=== PATIENT | female | born 1955 | race Caucasian/White ===

== ENCOUNTER 2017-04-12 20:53 | Emergency (ER) | payer OTHER ==
[~2017-04-12] VITALS: Ht 160 cm; Wt 58.0 kg
[2017-04-12 21:05] VITALS: Ht 160 cm; Wt 58.0 kg
--- NOTE | 2017-04-12 21:58 | ERD ---
ER Documentation Chief Complaint Date/Time DATE: 04/12/17 TIME: 21:56 Chief Complaint c/o right 4th digit laceration s/p cut by knife HPI 62-year-old female presenting to the emergency department with a superficial flap laceration from cutting a knife on her right fourth digit above the DIP region a couple hours prior to being seen. Patient states that she has full range of motion of her finger. Patient does not remember her last tetanus. She states pain is minimal ROS All systems reviewed and are negative except as per history of present illness. PMhx/Soc Medical and Surgical Hx: pt denies Medical Hx, pt denies Surgical Hx Hx Alcohol Use: Yes (SOCIALLY) Hx Substance Use: No Hx Tobacco Use: No Smoking Status: Never smoker Physical Exam Vitals Vital Signs Date Time Temp Pulse Resp B/P Pulse Ox O2 Delivery O2 Flow Rate FiO2 04/12/17 21:05 98.1 55 18 117/59 98 Physical Exam General: WD/WN, in no apparent distress, non-toxic appearing HENT: NC/AT Eyes: Conjunctiva normal Neck: Supple Pulm: Normal labored breathing CV: Good capillary refill GI: Non-distended, no guarding Back: No masses Ext: No clubbing, cyanosis, or edema Neuro: Moves on all fours, no neuro deficits, sensation intact Skin: 1 cm c superficial laceration to the dorsal aspect of the right fourth digit above the DIP n Psych: Normal mood Results 24 hrs Current Medications Medications (Trade) Dose Ordered Sig/Luis Antonio Route PRN Reason Start Time Stop Time Status Last Admin Dose Admin Diphtheria/ Tetanus/Acell Pertussis (Adacel) 0.5 ml ONCE ONCE IM* 04/12/17 22:00 04/12/17 22:01 Procedures/MDM This is a 62-year-old female presenting to the emergency department with a laceration to the right fourth digit, laceration is very superficial and does not require any suturing. In the ED patient was given tetanus shot. The wound was cleansed with normal saline and Steri-Strip was applied with pressure bandages. Low suspicion for arterial, tendon or fracture. She appears well and she has been instructed discharged home with precautions to return to emergency department for any worsening symptoms. She understands and agrees with this plan Departure Diagnosis: Primary Impression: Laceration Condition: Stable Patient Instructions: Laceration, Hand Referrals: DOCTOR,NOT ON STAFF (PCP) Additional Instructions: Follow up in 2 days in your clinic for wound check. Return to this facility if you are not improving as expected. MAHENDRA OTT PA-C Apr 12, 2017 21:58
[2017-04-12] MEDS ORDERED: DIPHTH/TET/ACEL PERTUSS (ADULT) 0.5 ML VIAL IM* ONE (22:00)
== END 2017-04-12 22:52 | disposition home or self-care (01) ==
LOC: FTE 20:53
DX: S61.214A Laceration without foreign body of right ring finger without damage to nail, initial encounter (principal); W26.0XXA Contact with knife, initial encounter; Y92.9 Unspecified place or not applicable
CPT/HCPCS: 90715; 99282

== ENCOUNTER → 2018-12-31 | Outpatient (CLI) | payer OTHER ==
--- NOTE | 2018-12-31 12:01 | CONS ---
Assessment/Plan Assessment/Plan Hospital Course (Demo Recall) This is a 63-year-old female who presents to clinic 1 week after acute right knee and lower leg pain. It has mostly resolved with only rest over the last couple days. Radiographs show no hip or knee pathology. However she does have significant degenerative disc disease of lumbar spine. This may have contributed to her acute pain which also radiated to the thigh and calf. At this time we will proceed with conservative management of her lumbar spine degenerative disc disease as well as her right lower leg deconditioning. Of note she does have a leg length discrepancy secondary to a trauma in her left leg as a child. This discrepancy may have led to or been part of the cause of her lumbar spine degeneration. If a shoe lift provides relief she should continue with a shoe lift however if it does not she does not need to wear it. Plan: Physical therapy for degenerative disc disease, hip strengthening, knee strengthening. Meloxicam Shoe lift Follow-up PRN Consultation Date/Type/Reason Admit Date/Time Date of Consultation: Dec 31, 2018 Reason for Consultation Right knee and leg pain Date/Time of Note DATE: 12/31/18 TIME: 11:49 Hx of Present Illness This is a 63-year-old female presents to clinic for evaluation and treatment of right knee and leg/hip pain. This all started 1 week ago when she stepped over a curb incorrectly. At that time she had 10 out of 10 sharp pain over the medial and posterior aspect of the knee. She states it radiated up her anterior thigh and down her calf. She denied any numbness or tingling or weakness. She does have history of lower back pain and stiffness which she does stretching exercises for and sees a chiropractor for. Her pain is much improved and it is now a 2/10. She did not have any swelling or feel a pop at that time. She does have a history of a meniscus tear in the right knee and had arthroscopic knee surgery in 1992. She is only been treating her pain with rest. She does not have any limitation to walking. States she is not sure what makes it worse as it is improving but yesterday she bumped her leg and she had an increased amount of pain for very limited amount of time. She does admit to an occasional limp. She does not use a gait aid. She uses a banister to climb stairs. Patient denies fever, chills, shortness of breath, chest pain, nausea/vomiting, constipation, diarrhea, numbness, and tingling. Past Medical History Left femur fracture at age 1209/19/1960 Depression Ectopic Past Surgical History Right knee arthroscopic surgery 1993 2 C-sections Family History Significant Family History: no pertinent family hx Social History Alcohol Use: heavy (7 drinks a week) Smoking Status: Former smoker Drug Use: none Exam/Review of Systems Exam Vitals Weight: 130 pounds Height: 5 feet 3 inches Temperature: 90.4 Heart Rate: 88 Blood Pressure: 173/77 Respiratory Rate: 14 Exam General: Alert, oriented x3. No Acute Distress. Heart: Regular rate and rhythm. Lungs: No respiratory distress. No accessory muscle use. Musculoskeletal: Right Knee This is a well developed female who is alert, oriented times three and in no apparent distress. Skin is intact over the right knee as well as the lower extremity with no abrasions, lacerations, or ulcerations. Observation of the patient's gait reveals a non- antalgic gait with no thrust. There is a short leg component. Frontal plane alignment is neutral. There is mild pain on palpation of medial joint line. There is no effusion. The patient demonstrates grinding anteriorly with ROM. Range of motion: 0 extension to approximately 130 degrees of flexion. Collateral ligament testing reveals no instability with varus or valgus stress at 0 and 30 degrees of flexion. Negative Javed's and neck posterior drawer. Standing, the pelvis is slightly oblique and supine there is mild true leg length discrepancy, with the right leg is quarter to half centimeter short. No tenderness over trochanteric bursa or IT band. ----- Range of motion: Flexion: 130 Extension: 0 Internal rotation: 30 External rotation: 60 Abduction: 60 Adduction: 20 ----- Sitting there is mild pelvic obliquity. No pain at the extremes of motion of the affected hip. Skin was intact throughout both lower extremities. Sensation intact to light touch in a sural, saphenous, deep peroneal, superficial peroneal, medial and lateral plantar nerve distribution. Neurovascular exam showed 5/5 strength in the abductors, quads, EHL/tibialis anterior/gastroc. Normal and symmetrical pulses were palpated in both the dorsalis pedis and posterior tibial arteries. There is no sign of venous stasis. Imaging Imaging The patient received a full set of films and personally reviewed by myself today in clinic including an AP pelvis and an AP and lateral of the affected hip. The hip is reduced. There is no loss of joint space. There is no degenerative changes in the right hip. Limited view of the lumbar spine shows significant degenerative disc disease with mild pelvic obliquity. There is no significant deformity of the the proximal femur, femoral neck, or acetabulum. The pelvis is in continuity. Bone quality radiographically: Good The patient received a standard set of films today that were personally reviewed. Imaging included a standing bilateral knee AP, PA flexion, merchant views and a dedicated lateral of the affected knee: There is neutral alignment of the knee. There is no loss of joint space in any compartment(s). There is no osteophyte formation. There is no subchondral sclerosis. There are no subchondral cysts. DAREN FAJARDO MD Dec 31, 2018 12:01
--- NOTE | 2018-12-31 16:49 | RADRPT ---
PROCEDURE: XR right hip. CLINICAL INDICATION: Right hip pain TECHNIQUE: 2 views of the right hip and single view of the pelvis were obtained. COMPARISON: No prior studies are available for comparison. FINDINGS: There is no acute fracture. Alignment is normal. Joint spaces are preserved there is minimal osteophyte formation. There is a chronic-appearing ossification bordering the left acetabular rim. There are degenerative c hanges of the lower lumbar spine. The soft tissues appear grossly unremarkable. IMPRESSION: 1. No radiographic evidence of acute osseous abnormality. 2. Minimal degenerative osteophytes at the acetabular rims and femoral head-neck junctions without si gnificant joint space loss. RPTAT: UU .Aaron Sparks MD, MD Date Time Electronically viewed and signed by .Aaron Sparks MD, on 12/31/2018 16:49 .K/
--- NOTE | 2018-12-31 16:50 | RADRPT ---
PROCEDURE: XR right knee and XR left knee. CLINICAL INDICATION: Bilateral knee pain TECHNIQUE: 4 images of the left knee and 4 images of the right knee are available for review. COMPARISON: None available FINDINGS: Right knee: There is no acute fracture. Alignment is normal. There is mild medial femorotibial compartment joint space loss. The lateral femorotibial and patellof emoral compartments are preserved. The soft tissues are grossly unremarkable. Left knee: There is no acute fracture. Alignment is normal. There is mild medial femorotibial compartment joint space loss. The lateral femorotibial and patellof emoral compartments are preserved. Soft tissues are grossly unremarkable. IMPRESSION: 1. No radiographic evidence of acute osseous abnormality. 2. Mild medial femorotibial compartment joint space loss bilaterally. RPTAT: UU .Aaron Sparks MD, MD Date Time Electronically viewed and signed by .Aaron Sparks MD, on 12/31/2018 16:49 .K/
== END | disposition home or self-care (01) ==
LOC: HKI 10:45
PROVIDERS: ATTEND Orthopaedic Surgery Adult Reconstructive Orthopaedic Surgery
DX: M25.561 Pain in right knee (principal); M25.551 Pain in right hip
CPT/HCPCS: 73502; 73564; G0463